=== PATIENT | male | born 1990 | race Caucasian/White ===

== ENCOUNTER 2025-07-28 15:04 | Emergency (ER) | payer SELFPAY ==
[2025-07-28 15:08] VITALS: BP 151/74; PULSE 91; RESP 18; TEMP 36.6; O2SAT 98; BMI 29.0
--- NOTE | 2025-07-28 15:12 | ED.GENADULT ---
[facility] - General Adult General Chief complaint: Wound/Laceration Stated complaint: hand lac Time Seen by Provider: 07/28/25 17:23 Source: patient Mode of arrival: ambulatory Limitations: language barrier History of Present Illness ED Provider: Dr. Cardenas [facility] narrative: 35-year-old male presented hospital today for laceration of the right hand. He lacerated the medial palmar aspect of his right hand near the 5th digit. Patient stated he was placing ceramic tile where he sustained a laceration. Related Data Previous Rx's ?Medication ?Instructions ?Recorded acetaminophen 500 mg tablet 1,000 mg (2 x 500 mg) PO Q6H PRN 07/28/25 (Tylenol Extra Strength) pain #60 tabs ibuprofen 400 mg tablet (IBU) 400 mg PO Q6H PRN pain #60 tabs 07/28/25 oxycodone 5 mg capsule 5 mg PO Q6H PRN pain #10 caps 07/28/25 Allergies Allergy/AdvReac Type Severity Reaction Status Date / Time No Known Allergies Allergy Verified 07/28/25 15:12 Review of Systems Review of Systems: Pertinent review of systems as mentioned in [facility]. All other system otherwise negative. [facility] Past Medical History [facility] Narrative: Medical history as mentioned in [facility] Social History Social History Advance Directives: No Advance Directives Information Provided: Yes Do you have a plan to hurt others: No Plan Physical Exam ED Exam Exam: General: Pleasant, no distress, interacting appropriately Head: Normacephalic, atraumatic Extremity: 3 cm laceration over the palmar aspect of the 5th digit. ROM intact. No sign of muscle injury on exploration. No debride appreciated Skin: Warm and dry Psychiatric: Appropriate mood and thoughts Vital Signs: Vital Signs - 24 hr 07/28/25 15:08 07/28/25 18:56 Temperature 98 F 98 F Pulse Rate 91 91 Respiratory Rate 18 18 Blood Pressure 151/74 H 151/74 H Pulse Oximetry 98 98 Oxygen Delivery Method Room Air Room Air BMI result Body Mass Index 29.0 Course Course Course Narrative: RME, this is a rapid medical exam performed by Al Concepcion please refer to primary provider for complete H&P- 35-year-old male presents for evaluation of a laceration to the palm of his right hand from ceramic tile. His tetanus is up-to-date. Plan for wound closure Medications Administered Discontinued Medications Generic Name Dose Route Start Last Admin Trade Name Freq PRN Reason Stop Dose Admin Acetaminophen 650 mg 07/28/25 15:13 07/28/25 15:19 Acetaminophen 325 Mg Tablet PO 07/28/25 15:14 650 mg ONCE ONE Administration Lidocaine HCl 10 ml 07/28/25 17:23 07/28/25 17:47 Lidocaine Hcl 1 % 20 Ml Vial INFILTRATI 07/28/25 17:24 10 ml ONCE ONE Administration Medical Decision Making Medical Decision Making [facility] Narrative: This is a 35-year-old male presented hospital today for laceration of the right 5th digit pulmonary aspect. He states his tetanus shot is up-to-date 3 years ago. horse trekking guide was used for this encounter. I end up repair this laceration. Five simple interrupted stitches was placed. Tolerated procedure well. 1% lidocaine was used for local anesthestic Differential Diagnosis Differential Diagnoses: The differential diagnosis associated with the presentation includes Laceration of hand, tendon injury, muscle injury Prescription Management I considered prescription management with: Pain Medication Discharge Plan Discharge Clinical Impression: Laceration Patient Disposition: Home, Self-Care Instructions: Care For Your Stitches (ED) Additional Instructions: Remove stitches in 10-14 days. Keep it clean and dry. Follow up with primary care office, urgent care or return to ED for stitch removal. Watch for signs of infection. Prescriptions: New ibuprofen [IBU] 400 mg tablet 400 mg PO Q6H PRN (Reason: pain) Qty: 60 0RF acetaminophen [Tylenol Extra Strength] 500 mg tablet 1,000 mg PO Q6H PRN (Reason: pain) Qty: 60 0RF oxycodone 5 mg capsule 5 mg PO Q6H PRN (Reason: pain) Qty: 10 0RF Rx Instructions: Partial Fill upon patient request. Interventions: ED Discharge Assessment Last Done: 07/28/25 18:56 Discharge Date/Time: 07/28/25 18:57 Print Language: Ecuadorean
[2025-07-28] MEDS: Lidocaine HCl 1 % 20 ML VIAL 10 ML INFILTRATI (17:47)
[2025-07-28 18:56] VITALS: BP 151/74; PULSE 91; RESP 18; TEMP 36.6; O2SAT 98
--- OUTSIDE RECORDS SUMMARY | 2025-07-28 20:51 | XMS_ITS | Encounter Summary ---
Author Organization [facility] Address [address] [place] [address] Care Team Providers Care Architect Internship Name Role Phone Elvira King Primary Care Provider [phone] Reason for Visit * Reason Comments Other Encounter Details Date Type Department Care Team ([facility] st Contact Info) Description 12/09/2020 Telephone [facility] [address] [address] Yasmine Olmedo MD [address] [place] [phone] Other Social History Tobacco Use Types Packs/Day Years Used Date Smoking Tobacco: Former Alcohol Use Standard Drinks/Week Comments Not Currently 0 (1 standard drink = 0.6 oz pur e alcohol) Sex and Gender Information Value Date Recorded Sex Assigned at Not on file Legal Sex Male 4:44 PM EDT Gender Identity Not on file Sexual Orientation Not on file documented as of this encounter Miscellaneous Notes * Telephone Encounter - Darcy Snow - 12/09/2020 12:18 PM EST Ap from [employer] requesting last office notes with work status faxed to [phone] documented in this encounter Plan of Treatment Not on file documented as of this encounter Visit Diagnoses Not on filedocumented in this encounter Care Teams Architect Internship Relationship Specialty Start Date End Date Elvira King PA [address] [place] [phone] PCP - General Occupational Medicine 06/21/25 documented as of this encounter
--- OUTSIDE RECORDS SUMMARY | 2025-07-28 20:51 | XMS_ITS ---
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 EncounterDiagnosisAct HH CCT Encounters Encounter Type Encounter Reason Primary Diagnosis Location Date Emergency Acute pharyngitis Acute pharyngitis [facility] 06/21/2025 Ambulatory Segmental and somatic dysfunction of lumbar region Segmental and somatic dysfunction of lumbar region [facility] 06/06/2025 Care Team Organization Name Specialty Phone Email Start Date End Da te [facility] 06/21/2025 07/20/2025 [facility] 06/21/2025 [facility] Primary Care 06/06/[address] 04/2025 [facility] 06/06/2025 [facility] NO PCP Primary Care 06/02/2025 [facility] 03/14/2025 [facility] - Luzma BARR Primary Care 05/06/2024 [facility] 08/10/2022 05/27/2024 [facility] NO PCP Primary Care 06/22/2021 05/27/2024
--- OUTSIDE RECORDS SUMMARY | 2025-07-28 20:51 | XMS_ITS | Clinical Summary ---
Author Organization [facility] Address [address] [place] [address] Care Team Providers Care Marine Machinist Name Role Phone [facility] Primary Care Provider Encounters Date Type Department Care Team Description 06/06/2025 10:00 AM EDT - 06/06/2025 11:59 PM EDT Hospital Encounter [facility] Radiology [address] [place] [address] Segmental and somatic dysfunction of lumbar region Discharge Disposition: Home or Self Care 06/06/2025 Travel from Last 3 Months Social History Tobacco Use Types Packs/Day Years Used Date Smoking Tobacco: Never Assessed Sex and Gender Information Value Date Recorded Sex Assigned at Male 06/02/2025 12:45 PM EDT Legal Sex Male 3:30 PM EST Gender Identity Male 06/02/2025 12:45 PM EDT Sexual Orientation Heterosexual (straight) 06/02 12:45 PM EDT Plan of Treatment Health Maintenance Due Date Last Done Comments Hepatitis C Virus Screening 1990 HIV Screening 2003 DTaP/Tdap/Td Vaccines (1 - Tdap) 2009 Hepatitis B Vaccines (1 of 3 - 19+ 3-dose series) 2009 Influenza Vaccine 05/09/2025 COVID-19 Vaccine ( - 2024-2 6 season) 2025 09/08/2021, 08/18/2021 HPV Vaccines (No Doses Required) Completed Pneumococcal Vaccine: Pediatric (0-5 Years) and At-Risk Patients (6 to 49 Years) Aged Out No longer eligible b ased on patient's age to complete this topic Procedures Procedure Name Priority Date/Time Associated Diagnosis Comments XR LUMBAR SPINE COMPLETE 4+ VIEWS Routine 06/06/2025 10:35 AM EDT Segmental and somatic dysfunction of lumbar region from Last 3 Months Results * XR Lumbar spine complete 4+ views (06/06/2025 10:35 AM EDT) Anatomical Region Laterality Modality L-spine Computed Radiogr aphy 06/06/2025 10:5 4 AM EDT Impressions 06/06/2025 10:56 AM EDT 1. No focal pathology identified in the lumbar spine. Narrative 06/06/2025 10:56 AM EDT XR LUMBAR SPINE COMPLETE 4+ VIEWS 06/06/2025 10:25 AM REASON FOR STUDY: seg and barbara dysfunction of lumbar region CLINICAL HISTORY: Segmental and somatic dysfunction of lumbar region COMPARISON: None TECHNIQUE: AP, lateral and bilateral oblique views of the lumbar spine. FINDINGS: 5 nonrib-bearing lumbar-type bodies are present. Vertebral body height and disc space height is preserved. No spondylolisthesis. No spondylolysis. Procedure Note Dony Medina MD - 06/06/2025 XR LUMBAR SPINE COMPLETE 4+ VIEWS 06/06/2025 10:25 AM REASON FOR STUDY: seg and barbara dysfunction of lumbar region CLINICAL HISTORY: Segmental and somatic dysfunction of lumbar region COMPARISON: None TECHNIQUE: AP, lateral and bilateral oblique views of the lumbar spine. FINDINGS: 5 nonrib-bearing lumbar-type bodies are present. Vertebral body heightand disc space height is preserved. No spondylolisthesis. Nospondylolysis. IMPRESSION: 1. No focal pathology identified in the lumbar spine. us Tori Alvarado DC IMG DIAGNOSTIC IMAGING ORDERABL ES Final Result from Last 3 Months Care Teams Marine Machinist Relationship Specialty Start Date End Date [facility] [address] [place] [address] PCP - General 06/06/25
--- OUTSIDE RECORDS SUMMARY | 2025-07-28 20:51 | XMS_ITS | Clinical Summary ---
Author Organization [facility] Address [address] [place], [place] [id number] Phone Care Team Providers Care Ict Sales Assistant Name Role Phone Unknown, Unknown Primary Care Provider Napoleon shepherd Allergies No known active allergies Medications cephalexin (KEFLEX) 500 MG capsule Take 1 capsule (500 mg total) by mouth 4 (four) times a day. 28 capsule 06/20/2020 Active HYDROcodone-leigh taminophen (NORCO) 5-325 mg per tablet Take 2 tablets by mouth every 6 (six) hours as needed for pain (specific location in comments). 20 tablet 06/20/2020 Active Active Problems No known active problems Immunizations Immunization Administration Dates Next Due Tdap 06/20/2020 Social History Tobacco Use Types Packs/Day Years Used Date Smoking Tobacco: Never Alcohol Use Standard Drinks/Week Comments Yes 0 (1 standard drink = 0.6 oz pur e alcohol) occas Education Answer Date Recorded Are you interested in more education? Not on tina e 02/03/2023 Are you concerned about learning? Not on file 02/03/2023 No 02/03/2023 No 02/03/2023 Digital Access Answer Date Recorded No 03/07/2023 No 03/07/2023 Reliable internet access at home? Not on file 03/07/2023 Device with a working camera? Not on file Sex and Gender Information Value Date Recorded Sex Assigned at Not on file Legal Sex Male 12:31 PM EDT Gender Identity Not on file Sexual Orientation Not on file Last Filed Vital Signs Vital Sign Reading Time Taken Comments Blood Pressure 132/74 06/20/2020 3:15 PM EDT Pulse 102 06/20/2020 3:15 PM EDT Temperature 36.7 C (98.1 F) 06/20/2020 3:15 PM EDT Respiratory Rate 12 06/20/2020 12:37 PM EDT Oxygen Saturation 96% 06/20/2020 2:00 PM EDT Inhaled Oxygen Concentration - - Weight 72.6 kg (160 lb) 06/20/2020 12:37 PM EDT Height 168 cm (5' 6.14 ) 06/20/2020 12:37 PM EDT Body Mass Index 25.71 06/20/2020 12:37 PM EDT Plan of Treatment Not on file Medical Devices Not on file Insurance [employer] Care Teams Ict Sales Assistant Relationship Specialty Start Date End Date Unknown, Unknown, PCP - General 06/20/20 Additional Source Comments The information contained in this document represents components of the legal health record. It is not the complete legal health record.[facility]
--- OUTSIDE RECORDS SUMMARY | 2025-07-28 20:51 | XMS_ITS | Encounter Summary ---
Author Organization [facility] and [facility] Address [address] [place] [address] Care Team Providers Care Fire Protection Designer Name Role Phone Elvira King Primary Care Provider Encounter Details Date Type Department Care Team (Late st Contact Info) Description 05/26/2022 Documentation [facility] [address] [address] Rohit Del Real MD [address] [place] [phone] Social History Tobacco Use Types Packs/Day Years Used Date Smoking Tobacco: Former Alcohol Use Standard Drinks/Week Comments Not Currently 0 (1 standard drink = 0.6 oz pur e alcohol) Sex and Gender Information Value Date Recorded Sex Assigned at Not on file Legal Sex Male 4:44 PM EDT Gender Identity Not on file Sexual Orientation Not on file documented as of this encounter Plan of Treatment Not on file documented as of this encounter Visit Diagnoses Not on filedocumented in this encounter Care Teams Fire Protection Designer Relationship Specialty Start Date End Date Elvira King PA [address] [place] [phone] PCP - General Occupational Medicine 06/21/25 documented as of this encounter
--- OUTSIDE RECORDS SUMMARY | 2025-07-28 20:51 | XMS_ITS | Encounter Summary ---
Author Organization [facility] Address [address] [place] [address] Care Team Providers Care Architectural Associate Name Role Phone Pcp, No Primary Care Provider [facility] Primary Care Provider Encounter Details Date Type Department Care Team (Late st Contact Info) Description 10/24/2020 Lab Requisition [place] [facility] [phone] Francisco Ballesteros PA-C [address] [place] [address] Encounter for laboratory testing for COVID-19 virus Social History Tobacco Use Types Packs/Day Years Used Date Smoking Tobacco: Never Assessed Sex and Gender Information Value Date Recorded Sex Assigned at Male 06/02/2025 12:45 PM EDT Legal Sex Male 3:30 PM EST Gender Identity Male 06/02/2025 12:45 PM EDT Sexual Orientation Heterosexual (straight) 06/02 12:45 PM EDT documented as of this encounter Plan of Treatment Not on file documented as of this encounter Procedures Procedure Name Priority Date/Time Associated Diagnosis Comments COVID-19 (SARS-COV-2) - [facility] Routine 10/24/2020 3:36 PM EST Encounter for laboratory testing for COVID-19 virus [ICD-10-CM] documented in this encounter Results * COVID-19 (SARS-COV-2) ([facility]) (10/24/2020 3:36 PM EST) COVID-19 RT-PCR NOT-DETECT ED Not-Detec morris 10/26/2020 1:07 AM EST [facility] Comment:Interpretation: The viral RNA was not detected, making the COVID-19 diagnosis less likely. Clinical correlation is highly recommended.Final report signed by Sherron Ordonez, Ph.D., [facility], Laboratory DirectorTests performed at [facility] Nasopharyngeal swab / Unknown 10/24/2020 3:36 PM EST 10/24/2020 3:36 PM EST Narrative LONNIE VELASCO - 10/26/2020 1:07 AM EST Performed by [facility] [address] [place] [address], CLIA# [id number] and [place] License# [id number] Francisco Ballesteros PA-C MICROBIOLOGY - GENERAL OR DERABLES Final Result LONNIE VELASCO documented in this encounter Visit Diagnoses Diagnosis Encounter for laboratory testing for COVID-19 virus documented in this encounter Care Teams Architectural Associate Relationship Specialty Start Date End Date Pcp, No PCP - General General Medicine 06/02/25 06/05/25 [facility] [address] [place] [address] PCP - General 06/06/25 documented as of this encounter
--- OUTSIDE RECORDS SUMMARY | 2025-07-28 20:51 | XMS_ITS | Clinical Summary ---
Author Organization [address] Address [address] [place] [address] Care Team Providers Care Dormitory Counselor Name Role Phone Elvira King Primary Care Provider Allergies No known active allergies Medications ibuprofen (ADVIL,MOTRIN) 800 mg tablet Take 1 tablet (800 mg total) by mouth 3 (three) times daily. 21 tablet 1 Active Additional Information Patient not taking.Reported on 05/26/2022 amoxicillin (AMOXIL) 500 mg capsule Take 1 capsule (500 mg total) by mouth 2 (two) times daily for 10 days. 20 capsule 5 07/01/20 25 Active Problems Problem Noted Date Diagnosed Date Thumb joint stiffness 10/30/2020 Thumb weakness 10/30/2020 Open wound of right thumb wi th tendon involvement; EIP to EPL transfer 09/30/2020 07/01/2020 Overview (10/30/2020): Work related injury Encounters Date Type Department Care Team Description 06/21/2025 3:35 AM EDT - 06/21/2025 4:39 AM EDT Emergency [facility] Emergency Department [address] [place] [phone] Sore throat (Primary Dx) Discharge Disposition: Home or Self Care 06/21/2025 Travel from Last 3 Months Social History [...] Sign Reading Time Taken Comments Blood Pressure 126/83 06/21/2025 2:14 AM EDT Pulse 77 06/21/2025 2:14 AM EDT Temperature 36.4 C (97.5 F) 06/21/2025 2:14 AM EDT Respiratory Rate 15 06/21/2025 2:14 AM EDT Oxygen Saturation 99% 06/21/2025 2:14 AM EDT Inhaled Oxygen Concentration - - Weight 84.8 kg (187 lb) 06/21/2025 2:15 AM EDT Height 165.1 cm (5' 5 ) 05/26/2022 9:11 AM EDT Body Mass Index 31.12 05/26/2022 9:11 AM EDT Plan of Treatment Health Maintenance Due Date Last Done Comments Hepatitis C screening 2008 Tetanus adult (Td q 10,TDAP once) 2010 Influenza vaccine 05/09/2025 Covid-19 vaccine series ( season) 2025 RSV Immunization (1 - 1-dose 75+ series) 2065 HIV screening Completed 06/21/2025 Meningococcal B Vaccine Aged Out No l onger eligible based on patient's age to complete this topic Meningococcal Vaccine Aged Out No nicholas saloni eligible based on patient's age to complete this topic Pneumococcal Vaccine (2 - 49 years) Aged Out No longer eligible b ased on patient's age to complete this topic Procedures Procedure Name Priority Date/Time Associated Diagnosis Comments HIV-1/HIV-2 ANTIBODY/ANTIGEN SCREEN W/REFLEX ([facility]) Timed 06/21/2025 4:21 AM EDT GROUP A STREPTOCOCCUS BY PCR ([facility]) STAT 06/21/2025 4:21 AM EDT from Last 3 Months Results * (ABNORMAL) Group A streptococcus by PCR (06/21/2025 4:21 AM EDT) Group A Streptococcus PCR Group A Streptococcus Detected(A) Not Detected 06/21/2025 5:40 AM EDT [facility] OF [facility]ORATORY MEDICINE Comment:Susceptibility not t ested. Penicillin, ampicillin, and first generation cephalosporins are the drugs of choice for the treatment of beta-hemolytic streptococcal infections including Group A Streptococcus and Group B Streptococcus. Resistance to these agents has not been described (Ref: CLSI M100). Swab SPECIMEN FROM THROAT / Unknown Collection / Unknown 06/21/2025 4:21 AM EDT 06/21/2025 5:07 AM EDT Aruna VIERA MICROBIOLOGY - GENERAL ORDERABLES Final Result Performing Organization Address [facility] Co de Phone Number [facility] DEPARTMENT OF [facility]ORATORY MEDICINE [address] [place] [address] * Automated HIV-1/HIV-2 antibody/antigen screen w/reflex ([facility]) (06/21/2025 4:21 AM EDT) [facility] HIV 1 and 2 Antibody/Antigen Screen Negative Negative 06/21/2025 6:42 AM EDT [facility]ORATORY MEDICINE Comment:Interpretation: This specimen is HIV antibody and antigen negative. A negative test does not exclude the possibility of infection with HIV. If suspicion is high, submit a sample for HIV nucleic acid testing. Negative results may be seen in early infection, advanced AIDS and agammaglobulinemic patients, among others. Antiretroviral drugs taken for treatment and prophylaxis may limit the ability of diagnostic tests to detect HIV infection. The performance of this assay has not been clinically validated in patients less than 2 years old. Blood Venipuncture / Unknown 06/21/2025 4:21 AM EDT 06/21/2025 4:57 AM EDT Aruna VIERA LAB BLOOD ORDERABLES F inal Result Performing Organization Address [facility]/ZIP Co de Phone Number [facility] DEPARTMENT OF LABORATORY MEDICINE [address] [place] [address] from Last 3 Months Care Teams Dormitory Counselor Relationship Specialty Start Date End Date Elvira King PA [address] [place] [phone] PCP - General Occupational Medicine 06/21/25
--- OUTSIDE RECORDS SUMMARY | 2025-07-28 20:51 | XMS_ITS | Patient Health Record ---
[facility] Organization [facility] Address [address] [place] [address] Care Team Providers Care Data Operations Director Name Role Phone Teodora Andrew Primary Care Provider [address] Thania Arias Unavailable [phone] Shraddha Pickering Unavailable [phone] Tori Alvarado DC Unavailable [phone] Yolanda Cam Unavailable [phone] Jessica Orellana Unavailable [phone] Elvira King Unavailable [phone] Suki Phillips Unavailable [phone] Ally Patel Unavailable Allergies No Known Allergies Results Component Value Reference Range Notes X-ray: Lumbar Spine Reviewed date:06/11/2025 08:04:19 AM Interpretation:Normal Performing Lab: Notes/Report: Normal Reason For Referral Reason PLease evelaute #14 for RCT Diagnosis 1 Dental examination ( Z01.20) Diagnosis 2 Dental caries (K02.9 ) Diagnosis 3 Dental plaque (K03.6 ) Referral Organization [facility] Referring Provider First Name Ally Referring Provider Last Name Amanda Referring Provider Speciality General De ntistry Referred Provider Specialty Endodontics Referral Priority Routine Medications Medication SIG (Take, Route, Frequency, Duration) Notes Start Date End Date Status Vitamin D3 25 MCG (1000 UT) Capsule 1 capsule Orally Once a day OTC Active Ergocalciferol 50 MCG (2000 UT) Tablet 1 tablet Orally Once a day; Duration: 90 days 03/28/2024 Unknown Methocarbamol 750 MG Tablet 1-2 tabs Ora lly (340B) 3 times a day when needed for back pain; Duration: 15 days 07/26/2024 Active Immunizations Vaccine Route Administration Date Status Comme nts COVID-19 Pfizer BioNTech Vac cine (Declined) Unknown 07/06/2024 Refused COVID-19 Pfizer BioNTech Vac cine (Historical) Unknown 08/18/2021 Administered COVID-19 Pfizer BioNTech Vac cine (Historical) Unknown 09/08/2021 Administered Influenza (Declined) Unknown 07/06/2024 Refused Social History Tobacco Use: Social History Observation Description Date Details (start date - stop date) Current Smoker NA - NA Sex Assigned At : Social History Observation Description Sex Assigned At Male Social History Social History Social Info Question Answer Notes Patient's perception of literacy I read well in: Marti anderson Tobacco Control (Standard) Tobacco use: Current smoker How often do you smoke cigarettes? Some days, but not every day How many cigarettes a day do you smoke? 5 or less How soon after you wake up do you smoke your first cigarette? After 60 minutes Are you interested in quitting? Not ready to quit Health Literacy How confident are yo u filling out medical forms by yourself? 1 Extremely STI History: Had/Exposed to STIs: No How do you like To Learn : Verbal Sexual History Had sex in the past 12 months Yes with Women only Use protection? No Have you ever had an STD? No Language Spoken Language Spoken Azerbaijani Alcohol AUDIT-C (Standard) Did you have a drink containing alcohol in the past year? Yes How often did you have six or more drinks on one occasion in the past year? 2 to 4 times a month (2 points) How many drinks did you have on a typical day when you were drinking in the past year? 7 to 9 drinks (3 points) How often did you have a drink containing alcohol in the past year? 2 to 4 times a month (2 points) Points 7 Interpretation Positive Additional Details Category Social Info Options Details Social History Marital Status : single Living With : partner Pets : none Smokers in household : yes, Renata nevarez MA Raya 07/06/2024 10:06:16 AM > , yes, pt smokes Drug Use Never Domestic Violence None Alcohol Notes Patient does not feel like he drinks a lot Problems Problem Type SNOMED Code ICD Code Onset Dates Problem Status W/U Status Risk Notes Problem Body mass index 30.00 to 34.99 (1331155000061 07) Body mass index (BMI) 32.0-32.9, adult (Z68.32) 025 Active confirmed Problem Dyslipidemia (902722333) Dyslipidemia (E78.5) Active confirmed Problem Obese class I (finding) (1484941622835 07) Obesity (BMI 30.0-34.9) (E66.9) Active confirmed counseled on lifestyle modifications Vital Signs Temperature 97.3 degrees Fahrenheit 03/10/2025 Respiratory Rate 18 /min 03/10/2025 Oximetry 97 % 03/10/2025 Blood pressure diastolic 73 mm Hg 06/10/2025 Height 65 in 05/07/2025 Blood pressure systolic 112 mm Hg 06/10/2025 Weight 197.2 lbs 05/07/2025 BMI 32.81 kg/m2 05/07/2025 Encounters Encounter Location [place] [address] 03/10/2025 Suki Alan Lump of skin of back R22.2 and Body mass index (BMI) 32.0-32.9, adult Z68.32 [place] [address] 05/07/2025 Thania Juana Accretions on teeth K03.6 and Dental plaque K03.6 [place] [address] 03/13/2025 Tori Alvarado DC Segmental and somatic dysfunction of lumbar region M99.03 and Myofascial pain M79.18 [place] [address] 06/10/2025 Ally Illindala Dental caries K02.9 ; Dental examination Z01.20 and Dental plaque K03.6 [place] [address] 07/08/2025 Ally Illindala Dental caries K02.9 [place] [address] 07/16/2025 Ally Illindala Dental caries K02.9 Assessments Encounter Date Diagnosis (ICD Code) Assessment Notes Treatment Notes Treatment Clinical Notes Section Notes 03/10/2025 Lump of skin of back (ICD-10 - R22.2) suspect lipoma vs trigger point. advised hot compress, gentle stretching, chiro, if no improvement w conservative tx can consider imaging 03/13/2025 Segmental and somatic dysfunction of lumbar region (ICD-10 - M99.03) 03/13/2025 Myofascial pain (ICD-10 - M79.18) 05/07/2025 Dental plaque (ICD-10 - K03.6) 05/07/2025 Accretions on teeth (ICD-10 - K03.6) 06/10/2025 Dental caries (ICD-10 - K02.9) 07/08/2025 Dental caries (ICD-10 - K02.9) 07/16/2025 Dental caries (ICD-10 - K02.9) 06/10/2025 Dental examination (ICD-10 - Z01.20) 03/10/2025 Body mass index (BMI) 32.0-32.9, adult (ICD-10 - Z68.32) 06/10/2025 Dental plaque (ICD-10 - K03.6) 03/10/2025 Other Patient Educate d with: Adult - Heart-Healthy Diet [place]pdf (Adult - Heart-Healthy Diet [place].pdf) Patient Educated with: Adult - Walking for Exercise [place].pdf (Adult - Walking for Exercise [place].pdf) 03/13/2025 Other RoF and PoC discussed, pt agreed to Belinda to incl CMT, STM (Static Compression, PIR, SOT, E-STIM, MRT, and IASTM), and HEP (Stretching and strengthening) to decr pn, improve function, neuromuscular reeducation, increase strength, and promote self-efficacy. Tx was not rendered. Pt was advised to increase H2O intake 1 gallon daily. Pt tx will continue once a week for the next 4 visits and then a reevaluation will occur. XR/DI ordered for the L/S Plan Of Treatment Next Appt Details Provider Name:Ally salmeron, 08/18/2025 10:45:00 AM, [address] [place] [address], [address], Provider Name:Teodora Andrew , 11/20/2025 09:00:00 AM, [address] [place] [address], [address], Provider Name:Teodora Andrew , 11/27/2025 09:00:00 AM, [place], [address], Provider Name:Teodora Andrew , 12/04/2025 09:00:00 AM, [place], [address], Provider Name:Teodora Andrew , 12/11/2025 09:00:00 AM, [place], [address], Insurance Providers Payer Name Payer Address Payer Phone Subscriber Number Group Number Insured Name Patient Relationship to Insured Coverage Start Date [id number] Stanton Holt Self - patient is the insured Medical (General) History Medical History History ICD Code from [place], arrived to 01/2019 Surgical History Surgery Date(Month/Year) right thumb, work related tendon injury- [facility] 2020
--- OUTSIDE RECORDS SUMMARY | 2025-07-28 20:51 | XMS_ITS | Encounter Summary ---
Author Organization [facility] Address [address] [place] [address] Care Team Providers Care Meat Cutting Block Repairer Name Role Phone Pcp, No Primary Care Provider [facility] Primary Care Provider Encounter Details Date Type Department Care Team (Late st Contact Info) Description 03/13/2025 Scanned Document [facility] [address] [facility] [address] [place] [phone] Provider, Generic Social History Tobacco Use Types Packs/Day Years [...] Procedure Name Priority Date/Time Associated Diagnosis Comments HX OUTSIDE ORDER 03/13/2025 documented in this encounter Results * OUTSIDE ORDER (03/13/2025) Narrative 03/13/2025 Ordered by an unspecified provider. us Generic Provider HX AMB PROCEDURES Final Result documented in this encounter Visit Diagnoses Not on filedocumented in this encounter Care Teams Meat Cutting Block Repairer Relationship Specialty Start Date End Date Pcp, No PCP - General General Medicine 06/02/25 06/05/25 [facility] [address] [place] [id number] PCP - General 06/06/25 documented as of this encounter
== END 2025-07-28 18:57 | disposition home or self-care (01) ==
PROVIDERS: Emergency Provider Student in an Organized Health Care Education/Training Program
DX: S61.411A Laceration without foreign body of right hand, initial encounter (principal); W45.8XXA Other foreign body or object entering through skin, initial encounter; Y93.9 Activity, unspecified; Y92.9 Unspecified place or not applicable; Y99.8 Other external cause status
CPT/HCPCS: 12002; 99283; 99284; J2003